=== PATIENT | female | born 1980 | race Caucasian/White ===

== ENCOUNTER 2016-06-15 10:04 | Observation (INO) | payer MEDICAID ==
--- NOTE | 2016-06-14 15:58 | GHP ---
[f rep st] PREOP HISTORY AND PHYSICAL ADMISSION DIAGNOSIS: Mass in the left kidney. HISTORY OF PRESENT ILLNESS: This is a 36-year-old lady who has presented with a left renal mass on an incidental CAT scan. She has no history of genitourinary cancers, and the mass measures 1.6 cm, and is a lower pole exophytic lesion. PAST MEDICAL HISTORY: She has had anemia, anxiety, depression, enlarged uterus , fibromyalgia, kidney stones, left-sided ureterolithiasis, ovarian cyst and renal mass. PAST SURGICAL HISTORY: , cholecystectomy, gastric bypass, oophorectomy. MEDICATIONS: Include hydroxyzine, iron, naproxen, Percocet. ALLERGIES: No known drug allergies. FAMILY HISTORY: Anemia, cancer, emphysema, gallbladder cancer, heart disease, prostate cancer, and renal cancer. SOCIAL HISTORY: Daily consumption of a small amount of alcohol, smoker. , housewife, 5 children. REVIEW OF SYSTEMS: Negative for cardiac, respiratory, GI, endocrine, musculoskeletal, and hematologic. PHYSICAL EXAM: VITAL SIGNS: Stable. CHEST: Clear. HEART: Regular rate and rhythm. ABDOMEN: No organomegaly, rebound or guarding. EXTREMITIES: Lower extremities are normal. PLAN: I reviewed her CAT scan in detail with her and discussed the options. The plan will be to have her undergo an attempted robotic-assisted partial nephrectomy of the left side. Because of her previous intraabdominal surgeries , it may be difficult to get access to her abdomen via a port, and she is aware of this. In that case, she would undergo an open partial left nephrectomy, and the possibility of a nephrectomy has been discussed. Written and verbal consent was obtained. She will be admitted for the above procedure. /[id number]/MODL MTDD
[~2016-06-15 10:04] MED LIST: ceFAZolin 2 GM/DEXTROSE 100 ML IV ONE
[2016-06-15] MEDS ORDERED: LIDOCAINE 1% 5 ML SDV ONE (10:15)
[2016-06-15] MEDS ORDERED: CEFAZOLIN 2 GM/DEXTROSE/100 ML BAG IV ONE (10:36)
[2016-06-15] MEDS ORDERED: THROMBIN (BOVINE) 5,000 UNIT VIAL TP ONE (11:16)
[2016-06-15] MEDS ORDERED: SKIN ADHESIVE (DERMABOND) 1 EACH TP ONE ×2 (11:16→12:48)
[2016-06-15] MEDS ORDERED: MANNITOL 20% 100 GM/500 ML BAG IV ONE (11:17)
[2016-06-15] MEDS ORDERED: morphINE *ANESTHESIA ONLY* 10 MG/ML VIAL ONE (11:20)
[2016-06-15] MEDS ORDERED: PROPOFOL/EMULSION 500 MG/50 ML BOTTLE IV ONE (11:20)
[2016-06-15] MEDS ORDERED: MIDAZOLAM 2 MG/2 ML VIAL ONE (11:35)
[2016-06-15] MEDS ORDERED: BUPIVACAINE/EPI 0.25% 30 ML SDV ONE ×2 (12:46→13:38)
[2016-06-15] MEDS ORDERED: THROMBIN(HUM PLAS)/FIBRINOG/CA 5 ML VIAL TP ONE (13:22)
[2016-06-15] MEDS ORDERED: LIDOCAINE 2% 5 ML SDV ONE (13:27)
[2016-06-15] MEDS ORDERED: ROCURONIUM 100 MG/10 ML VIAL ONE (13:27)
[2016-06-15] MEDS ORDERED: DEXAMETHASONE 4 MG/ML VIAL ONE (13:27)
[2016-06-15] MEDS ORDERED: SUGAMMADEX SODIUM 200 MG/2 ML VIAL IVP ONE ×2 (13:28)
[2016-06-15] MEDS ORDERED: ONDANSETRON 4 MG/2 ML VIAL IVP PRN (13:55)
[2016-06-15] MEDS ORDERED: ONDANSETRON DISINTEGRATING 4 MG TAB PO PRN (13:55)
[2016-06-15] MEDS ORDERED: NALOXONE HCL 0.4 MG/ML INJ IVP PRN (13:55)
[2016-06-15] MEDS ORDERED: HYDROmorphONE/DILAUDID 6 MG/30 ML PCA IV PRN (13:55)
[2016-06-15] MEDS ORDERED: ACETAMINOPHEN 325 MG TAB PO PRN (13:55)
[2016-06-15] MEDS ORDERED: ZOLPIDEM TARTRATE 5 MG TAB PO PRN (13:55)
[2016-06-15] MEDS ORDERED: hydrOXYzine HCL 25 MG TAB PO PRN (13:55)
[2016-06-15] MEDS ORDERED: NAPROXEN SODIUM 500 MG PO PRN (13:55)
--- NOTE | 2016-06-15 14:02 | SUROPNOTE ---
[facility] Operative Report - Surgery dictated left partial nephrectomy for renal mall robotic assisted EBL 30 ml GA--Dr. Bartolo melendez surgeon ok assisted 19 minute ischemic time
[2016-06-15] MEDS ORDERED: fentaNYL 100 MCG/2 ML INJ ONE (14:03)
[2016-06-15] MEDS ORDERED: PROMETHAZINE HCL 12.5 MG SUPPR PR ONE (14:30)
--- NOTE | 2016-06-15 15:06 | GOP ---
[f rep st] OPERATIVE REPORT DATE OF OPERATION: SURGEON: Kashmir Carey MD [employer] SPECIALIST: Ellie Talavera CFA (sampler first). ANESTHESIOLOGIST: Glory Villalta MD PREOPERATIVE DIAGNOSIS: Left renal mass POSTOPERATIVE DIAGNOSIS: Left renal mass. PROCEDURE PERFORMED: Left robotic-assisted partial nephrectomy. FINDINGS: SPECIMENS: Sent to pathology. I will discuss the findings with her family. ESTIMATED BLOOD LOSS: 30 mL per Anesthesia. DESCRIPTION OF PROCEDURE: Patient preoperatively discussed the indications, complications, diagnosi s, and she was marked appropriately. Then, at that point, after undergoing general anesthesia, she was prepped and draped in normal sterile fashion with all padded sites noted and appropriate positio lindsey on the table. Then, at that point, Ioban was used over the abdominal skin after the draping. At Cornelius point, we inserted the Veress needle to insufflate the abdomen to 15 mmHg. At that point, was able to place a camera port at midclavicular line, and just lateral to that the operative arm p orts, 8 mm ports, were placed under direct vision. She had adhesions in the abdomen that were taken down. We then mobilized the left colon. Could identify the renal artery and vein on the left side after identifying the ureter, carrying that that dissection up cephalad. Then, identified the exop hytic mass in the lower pole of the left kidney. Incised the fat so that I could take a bit of the fat that was adjacent to the mass, and then pushed vascular clamps on the artery, then on the vein. The ischemic time was 19 minutes. Excised the tumor, and grossly it appeared that there was no res idual tumor behind, and the base of the tumor appeared to be intact on the specimen. At that point, a 4-0 Monocryl was used to close the inner layer of the kidney. Then, had a serpentine closure wit h 0 Vicryl that was reinforced with Hem-o-alphonso. Then removed the clamps, and there was no bleeding i dentified from any of the operative sites. We decreased the pressure to 5 mmHg, and once again, no bleeding or pooling was noted. We discussed whether Evicel should be used because all the apparatus was not available and felt there was no bleeding, and elected not to use Evicel. At that point, no drain was utilized, and then brought the specimen, put it in a bag, and then brought it out through the camera port intact. Then, the fascial closure device with 0 Vicryl was used to close the tad tant port, which was a 15 mm port, and the camera port, and the wound was irrigated and Marcaine was utilized for local field block around each port site. Then, the skin was closed with a 4-0 Monocry l. DISPOSITION: The patient will be admitted for postoperative care. /[id number]/MODL
[2016-06-15] MEDS: D5W 1/2 NS 1,000 ML IV SCH ×2 (16:03→22:40)
[2016-06-15] MEDS: OXYCODONE/APAP 5/325 TAB PO PRN ×2 (18:04→22:38)
[2016-06-15] MEDS ORDERED: LORazepam 2 MG/ML INJ IV PRN (22:30)
[2016-06-16] MEDS: OXYCODONE/APAP 5/325 TAB PO PRN ×3 (02:15→11:42)
[2016-06-16] MEDS: NAPROXEN SODIUM 220 MG TAB PO PRN ×2 (02:20→08:53)
[2016-06-16 05:21] LABS: % IMMATURE GRANULYOCYTES 0.4 % (0.0-1.1); ABSOLUTE IMMATURE GRANULOCYTES 0.05 10^3/uL (0.00-0.10); ADD DIFF? NO; ADD MORPH? YES; ADD SCAN? NO; ATYPICAL LYMPHOCYTE FLAG 0 (0-99); FRAGMENT RBC FLAG 20 (0-99); HEMATOCRIT 26.9 % (38.0-47.0); LEFT SHIFT FLG 10 (0-99); LIPEMIA HEMOLYSIS FLAG 70 (0-99); MEAN CELL HEMOGLOBIN 20.5 pg (27.9-34.1); MEAN CELL HEMOGLOBIN CONCENTR. 29.7 g/dL (32.4-36.7); PLATELET CLUMPS FLAG 0 (0-99); PLATELET COUNT 274 10^3/uL (150-400); RED BLOOD CELL COUNT 3.91 10^6/uL (4.18-5.33); RED CELL DISTRIBUTION WIDTH 18.5 % (11.5-15.2)
[2016-06-16 05:27] LABS: MEAN CELL VOLUME 68.8 fL (81.5-99.8)
[2016-06-16 05:32] LABS: ANION GAP 10 mEq/L (8-16); CALCIUM 8.6 mg/dL (8.5-10.4); CARBON DIOXIDE 25 mEq/l (22-31); CHLORIDE 106 mEq/L (97-110); CREATININE 0.7 mg/dL (0.6-1.0); GLOMERULAR FILTRATION RATE > 60; GLUCOSE 99 mg/dL (70-100); SODIUM 141 mEq/L (134-144)
[2016-06-16 05:52] VITALS: RESP 16
[2016-06-16 06:23] LABS: HYPOCHROMIA 2+; MICROCYTES 2+; PLATELET ESTIMATE ADEQUATE (ADEQ)
--- NOTE | 2016-06-16 07:53 | SOAPPROG ---
SOAP Progress Note Assessment/Plan: Assessment: Neoplasm of left kidney Acute POD 1 and doing well, path pending Plan: DC planning 06/16/16 08:01 Subjective: doing well Objective: Vital Signs Temp Pulse Resp BP Pulse Ox 36.7 C 70 16 92/63 L 100 06/16/16 05:51 06/16/16 06:26 06/16/16 06:15 06/16/16 06:26 06/16/16 05:51 Laboratory Results 06/16/16 05:03 06/16/16 05:03 06/15/16 06/16/16 06/17/16 05:59 05:59 05:59 Intake Total 3030 Output Total 1990 Balance 1040 Physical Exam - Physical Exam General Appearance: alert Neck: supple Respiratory: No respiratory distress Cardiac/Chest: regular rate, rhythm Abdomen: soft (port sites ok) Back: No CVA tenderness Skin: warm/dry Extremities: No calf tenderness, No Harleen's sign Neuro/Psych: alert, oriented x 3 ICD10 Worksheet Patient Problems: Problems Problem Status Onset Neoplasm of left kidney Acute
[2016-06-16] MEDS ORDERED: NICOTINE 21 MG/24 HR PATCH TD SCH (09:00)
[2016-06-16 11:34] LABS: HEMATOCRIT 28.7 % (38.0-47.0); HEMOGLOBIN 8.7 g/dL (12.6-16.3)
[2016-06-16 12:10] VITALS: BP 94/65; PULSE 79; TEMP 98; O2SAT 94
[2016-06-16] MEDS ORDERED: LORAZEPAM 1 MG PREPACK#4 BTL TAKEHOME ONE (12:23)
--- NOTE | 2016-06-16 13:14 | GDS ---
[f rep st] DISCHARGE SUMMARY PREOPERATIVE DIAGNOSIS: Mass in left kidney. POSTOPERATIVE DIAGNOSIS: Mass in left kidney. HOSPITAL COURSE: This is a pleasant 36-year-old female who had renal mass found on CT scan. After a full discussion of options, she elected to have a left partial nephrectomy, which she underwent without any difficulty. She is being discharged home in good condition. She is to have a repeat CBC next week and follow up in our office in 3 weeks. /[id number]/MODL MTDD
== END 2016-06-16 13:15 | disposition home or self-care (01) ==
LOC: F1N 10:04 → INTOOBSV 10:04 → F1N 15:25
PROVIDERS: ADMIT Specialist; ATTEND Specialist
PROC: 8E0W4CZ Robotic Assisted Procedure of Trunk Region, Percutaneous Endoscopic Approach (ICD-10-PCS; principal; 2016-06-15 11:30)
PROC: 0TB14ZZ Excision of Left Kidney, Percutaneous Endoscopic Approach (ICD-10-PCS; principal; 2016-06-15 11:30)
DX: D49.512 Neoplasm of unspecified behavior of left kidney (principal); D64.9 Anemia, unspecified; F41.8 Other specified anxiety disorders; M79.7 Fibromyalgia; F17.210 Nicotine dependence, cigarettes, uncomplicated; Z87.442 Personal history of urinary calculi; Z98.84 Bariatric surgery status
CPT/HCPCS: 50543; G0378; J0690; J1100; J1170; J1200; J2060; J2250; J2704; J3010